=== PATIENT | male | born 1980 | race Caucasian/White ===

== ENCOUNTER 2017-05-21 11:45 | Emergency (ER) | payer OTHER ==
[~2017-05-21] VITALS: Ht 182.9 cm; Wt 90.0 kg
[2017-05-21 11:47] VITALS: BP 152/91; PULSE 99; RESP 16; TEMP 97.8; O2SAT 99
--- NOTE | 2017-05-21 12:13 | PD ---
Physical Exam Date Seen by Provider: May 21, 2017 Narrative Patient presents with a greater than one week history of abdominal pain. Data Data Last Documented VS Vital Signs Date Time Temp Pulse Resp B/P (MAP) Pulse Ox O2 Delivery O2 Flow Rate FiO2 05/21/17 11:47 97.8 99 16 152/91 (111) 99 Orders Orders Complete Blood Count With Diff (05/21/17 12:09) Comprehensive Metabolic Panel (05/21/17 12:09) Lipase (05/21/17 12:09) Us Abdomen Gallbladder (05/21/17 ) Iv Access Insert/Monitor (05/21/17 12:09) Morphine Inj (Morphine Inj) (05/21/17 12:15) Ondansetron Inj (Zofran Inj) (05/21/17 12:15) Sodium Chloride 0.9% Flush (Ns Flush) (05/21/17 12:15) MDM Supervised Visit with KAMILLE: Yes Narrative Course I, Dr. White, have reviewed the advance practice practitioner's documentation and am in agreement, met with the patient face to face, made the diagnosis, and the medical decision making was done by me. *My assessment and Findings: The patient was seen and examined along with Nancy Sainz NP. The patient has a soft abdomen. He was tender in the right upper quadrant on my exam the tenderness had resolved by the time Nancy examined him which was just a couple minutes later. Routine abdominal labs have been ordered. Ultrasound of gallbladder has also been ordered. Please see Nancy Sainz NP's note for results of laboratory and radiographic evaluation, ED course, final diagnosis and disposition Radha White MD May 21, 2017 12:13
[2017-05-21] MEDS ORDERED: SODIUM CHLORIDE 0.9% FLUSH 10 ML FLUSH IV FLUSH PRN (12:15)
[2017-05-21] MEDS ORDERED: ONDANSETRON HCL 4 MG/2 ML VIAL IVP ONE (12:15)
[2017-05-21] MEDS ORDERED: MORPHINE SULFATE 4 MG/ML INJ IV PUSH ONE (12:15)
[2017-05-21] MEDS ORDERED: ZANT150T2 PO (12:26)
[2017-05-21 12:41] LABS: AUTOMATED NEUTROPHIL # 5.3 TH/MM3 (1.8-7.7); BASOPHIL % 0.1 % (0.0-2.0); EOSINOPHIL % 0.2 % (0.0-4.0); HEMATOCRIT 45.4 % (39.0-51.0); HEMO FLAGS DIFF FINAL; LYMPH % 16.3 % (9.0-44.0); LYMPHOCYTE # 1.1 TH/MM3 (1.0-4.8); MEAN CELL VOLUME 89.6 FL (80.0-100.0); MEAN CORPUSCULAR HEMOGLOBIN 31.2 PG (27.0-34.0); MEAN CORPUSCULAR HGB CONC 34.8 % (32.0-36.0); MONO % 6.4 % (0.0-8.0); PLATELET COUNT 203 TH/MM3 (150-450); RED BLOOD COUNT 5.07 MIL/MM3 (4.50-5.90); RED CELL DISTRIBUTION WIDTH 12.7 % (11.6-17.2); WHITE BLOOD COUNT 6.9 TH/MM3 (4.0-11.0)
--- NOTE | 2017-05-21 12:44 | RADRPT ---
EXAM DATE/TIME: 05/21/2017 12:17 [facility] COMPARISON: No previous studies available for comparison. INDICATIONS : Right upper quadrant pain. MEDICAL HISTORY : Abdominal pain. SURGICAL HISTORY : [place] teeth. ENCOUNTER: Initial ACUITY: 4-6 days PAIN SCORE: 4/10 LOCATION: Right upper quadrant MEASUREMENTS: LIVER: 15.2 cm length COMMON DUCT: 5 mm RIGHT KIDNEY: 12.1 x 4.9 x 6.7 cm FINDINGS: LIVER: Normal echotexture without focal lesion or ductal dilatation. COMMON DUCT: No intraluminal mass or stone visualized. GALLBLADDER: Contains no stones, demonstrates no wall thickening or pericholecystic fluid. PANCREAS: The visualized portions are within normal limits. RIGHT KIDNEY: Slight fullness of the collecting system. No calculus or mass. CONCLUSION: 1. Slight fullness of the right renal collecting system without evidence for renal calculi. This is n onspecific and of uncertain clinical significance. 2. Otherwise, unremarkable right upper quadrant ultrasound examination. Specifically no cholelithiasi s or sonographic evidence for acute cholecystitis. Isai Lawson MD on May 21, 2017 at 12:40 Board Certified Radiologist. This report was verified electronically.
--- NOTE | 2017-05-21 12:48 | PD ---
HPI . Abdominal pain Chief Complaint: GI Complaint Time Seen by Provider: 11:58 Travel History International Travel<30 days: No Contact w/Intl Traveler<30days: No Traveled to known affect area: No History of Present Illness HPI 36 year old male patient presents to the emergency department for evaluation of gnawing abdominal pain that started last Wednesday. Patient denies any vomiting , nausea or diarrhea. The patient states he has had two episodes of "floating" stool that looked oily. Patient denies any blood in his stool. Patient denies any fever, chills, chest pain, shortness breath, malaise, lightheadedness. Patient states he has been drinking heavily for the last couple months and using ibuprofen for pain management. Patient's has just had a baby. The patient has a lot of stress in his life at this time. [facility] Past Medical History Diminished Hearing: No GERD: Yes Past Surgical History Oral Surgery: Yes (WISDOM TEETH) Social History Alcohol Use: Yes Tobacco Use: No Substance Use: No Allergies-Medications (Allergen,Severity, Reaction): Coded Allergies: No Known Allergies (Verified Allergy, Severe, 05/21/17) Reported Meds & Prescriptions Reported Meds & Active Scripts Active Pantoprazole (Pantoprazole Sodium) 20 Mg Tab 20 Mg PO DAILY Reported Zantac (Ranitidine HCl) 150 Mg Tab 75 Mg PO DAILY Review of Systems Except as stated in HPI: all other systems reviewed are Neg Physical Exam Narrative GENERAL: Well-nourished, well-developed 36-year-old male patient in no acute distress. Nontoxic appearing. SKIN: Focused skin assessment warm/dry. HEAD: Normocephalic. Atraumatic. EYES: No scleral icterus. No injection or drainage. NECK: Supple, trachea midline. No JVD or lymphadenopathy. CARDIOVASCULAR: Regular rate and rhythm without murmurs, gallops, or rubs. RESPIRATORY: Breath sounds equal bilaterally. No accessory muscle use. GASTROINTESTINAL: Abdomen soft, non-tender, nondistended. MUSCULOSKELETAL: No cyanosis, or edema. BACK: Nontender without obvious deformity. No CVA tenderness. Data Data Last Documented VS Vital Signs Date Time Temp Pulse Resp B/P (MAP) Pulse Ox O2 Delivery O2 Flow Rate FiO2 05/21/17 11:47 97.8 99 16 152/91 (111) 99 Orders Orders Complete Blood Count With Diff (05/21/17 12:09) Comprehensive Metabolic Panel (05/21/17 12:09) Lipase (05/21/17 12:09) Us Abdomen Gallbladder (05/21/17 ) Iv Access Insert/Monitor (05/21/17 12:09) Morphine Inj (Morphine Inj) (05/21/17 12:15) Ondansetron Inj (Zofran Inj) (05/21/17 12:15) Sodium Chloride 0.9% Flush (Ns Flush) (05/21/17 12:15) Ed Discharge Order (05/21/17 13:39) Labs Laboratory Tests Test 05/21/17 12:25 White Blood Count 6.9 TH/MM3 Red Blood Count 5.07 MIL/MM3 Hemoglobin 15.8 GM/DL Hematocrit 45.4 % Mean Corpuscular Volume 89.6 FL Mean Corpuscular Hemoglobin 31.2 PG Mean Corpuscular Hemoglobin Concent 34.8 % Red Cell Distribution Width 12.7 % Platelet Count 203 TH/MM3 Mean Platelet Volume 10.7 FL Neutrophils (%) (Auto) 77.0 % Lymphocytes (%) (Auto) 16.3 % Monocytes (%) (Auto) 6.4 % Eosinophils (%) (Auto) 0.2 % Basophils (%) (Auto) 0.1 % Neutrophils # (Auto) 5.3 TH/MM3 Lymphocytes # (Auto) 1.1 TH/MM3 Monocytes # (Auto) 0.4 TH/MM3 Eosinophils # (Auto) 0.0 TH/MM3 Basophils # (Auto) 0.0 TH/MM3 CBC Comment DIFF FINAL Differential Comment Blood Urea Nitrogen 8 MG/DL Creatinine 0.79 MG/DL Random Glucose 95 MG/DL Total Protein 8.9 GM/DL Albumin 4.8 GM/DL Calcium Level 9.0 MG/DL Alkaline Phosphatase 89 U/L Aspartate Amino Transf (AST/SGOT) 22 U/L Alanine Aminotransferase (ALT/SGPT) 36 U/L Total Bilirubin 0.7 MG/DL Sodium Level 133 MEQ/L Potassium Level 3.6 MEQ/L Chloride Level 102 MEQ/L Carbon Dioxide Level 23.4 MEQ/L Anion Gap 8 MEQ/L Estimat Glomerular Filtration Rate 112 ML/MIN Lipase 129 U/L MDM Medical Decision Making Medical Screen Exam Complete: Yes Emergency Medical Condition: Yes Differential Diagnosis Differential diagnosis include but not limited to gastritis, peptic ulcer, ulcerative colitis, pancreatitis Narrative Course 36-year-old male patient presents emergency department for evaluation of abdominal pain that started last Wednesday. The patient describes the pain as gnawing in nature. The patient states the pain started in his left upper quadrant but has moved over to the right upper quadrant. On physical exam with Dr Cordero's the patient has tenderness with palpation on his right upper quadrant , however on physical exam with myself the patient did not have any tenderness. IV obtained and blood work sent to lab. CBC, CMP, lipase ordered and pending. Ultrasound of the gallbladder ordered and pending. 4 mg IV morphine, 4 mg IV Zofran administered. Blood work was unremarkable. Ultrasound was negative for any acute findings. Patient's physical exam, history and clinical presentation is consistent with possible peptic ulcer disease. The patient has a lot of additional stress in his life at this time. Patient is discharged home with a prescription for pantoprazole and instructions to discontinue spicy foods, alcohol, ibuprofen and to take his medication as prescribed and follow- up with primary care but return to emergency Department with any worsening condition. Last Impressions Gall Bladder Ultrasound 05/21/17 0000 Signed Impressions: Service Date/Time: Sunday, May 21, 2017 12:17 - CONCLUSION: 1. Slight fullness of the right renal collecting system without evidence for renal calculi. This is nonspecific and of uncertain clinical significance. 2. Otherwise, unremarkable right upper quadrant ultrasound examination. Specifically no cholelithiasis or sonographic evidence for acute cholecystitis. Isai Lawson MD Laboratory Tests Test 05/21/17 12:25 White Blood Count 6.9 TH/MM3 Red Blood Count 5.07 MIL/MM3 Hemoglobin 15.8 GM/DL Hematocrit 45.4 % Mean Corpuscular Volume 89.6 FL Mean Corpuscular Hemoglobin 31.2 PG Mean Corpuscular Hemoglobin Concent 34.8 % Red Cell Distribution Width 12.7 % Platelet Count 203 TH/MM3 Mean Platelet Volume 10.7 FL Neutrophils (%) (Auto) 77.0 % Lymphocytes (%) (Auto) 16.3 % Monocytes (%) (Auto) 6.4 % Eosinophils (%) (Auto) 0.2 % Basophils (%) (Auto) 0.1 % Neutrophils # (Auto) 5.3 TH/MM3 Lymphocytes # (Auto) 1.1 TH/MM3 Monocytes # (Auto) 0.4 TH/MM3 Eosinophils # (Auto) 0.0 TH/MM3 Basophils # (Auto) 0.0 TH/MM3 CBC Comment DIFF FINAL Differential Comment Blood Urea Nitrogen 8 MG/DL Creatinine 0.79 MG/DL Random Glucose 95 MG/DL Total Protein 8.9 GM/DL Albumin 4.8 GM/DL Calcium Level 9.0 MG/DL Alkaline Phosphatase 89 U/L Aspartate Amino Transf (AST/SGOT) 22 U/L Alanine Aminotransferase (ALT/SGPT) 36 U/L Total Bilirubin 0.7 MG/DL Sodium Level 133 MEQ/L Potassium Level 3.6 MEQ/L Chloride Level 102 MEQ/L Carbon Dioxide Level 23.4 MEQ/L Anion Gap 8 MEQ/L Estimat Glomerular Filtration Rate 112 ML/MIN Lipase 129 U/L Diagnosis Primary Impression: Abdominal pain Qualified Codes: R10.10 - Upper abdominal pain, unspecified Referrals: Primary Care Physician Patient Instructions: Diet for Stomach Ulcers and Gastritis (ED), General Instructions, Peptic Ulcer (ED) Additional Instructions: Please return to emergency department if your symptoms return or worsen. Follow up with your primary care provider. Take medications as prescribed. Avoid spicy and acidic food. Avoid alcohol and ibuprofen. Med/Other Pt SpecificInfo: Prescription(s) given Scripts Pantoprazole (Pantoprazole) 20 Mg Tab 20 MG PO DAILY for Reflux, #14 TAB 0 Refills Prov: Nancy Sainz Lucy GONZALEZ 05/21/17 Disposition: 01 DISCHARGE HOME Condition: Stable Alistair,Nancy GONZALEZ May 21, 2017 12:48
[2017-05-21 13:02] LABS: ANION GAP 8 MEQ/L (5-15); AST (GOT) 22 U/L (15-37); BICARBONATE 23.4 MEQ/L (21.0-32.0); BLOOD UREA NITROGEN 8 MG/DL (7-18); CHLORIDE 102 MEQ/L (98-107); GLOMERULAR FILTRATION RATE 112 ML/MIN (>89); POTASSIUM 3.6 MEQ/L (3.5-5.1); SODIUM (NA) 133 MEQ/L (136-145)
[2017-05-21 13:03] LABS: ALT (GPT) 36 U/L (12-78)
[2017-05-21 13:04] LABS: ALKALINE PHOSPHATASE 89 U/L (45-117); TOTAL BILIRUBIN ADULT 0.7 MG/DL (0.2-1.0)
[2017-05-21] MEDS ORDERED: PANT20TA2 PO (13:38)
[2017-05-21 14:00] VITALS: BP 124/77
== END 2017-05-21 14:21 | disposition home or self-care (01) ==
LOC: NEPD 11:45
DX: R10.10 Upper abdominal pain, unspecified (principal); K21.9 Gastro-esophageal reflux disease without esophagitis; Z79.899 Other long term (current) drug therapy
CPT/HCPCS: 76705; 80053; 83690; 85025; 96374; 96375